=== PATIENT | male | born 1955 | race Caucasian/White ===

== ENCOUNTER 2017-07-25 09:29 | Inpatient (IN) ==
[2017-07-25] MEDS ORDERED: ONDANSETRON 4 MG/2 ML VIAL IV PRN (11:35)
[2017-07-25] MEDS ORDERED: GLUCAGON 1 MG VIAL IM PRN (11:35)
[2017-07-25] MEDS ORDERED: traMADol 50 MG TABLET PO PRN (11:35)
[2017-07-25] MEDS ORDERED: DEXTROSE 50% 25 GM/50 ML VIAL IV PRN (11:35)
[2017-07-25 13:57] LABS: Basophils % 0.3 % (0.0-0.8); Eosinophils # 0.2 10*3/uL (0.0-0.87); Hemoglobin 16.9 GM/DL (14.0-18.0); Immature Granulocytes % 0.6 %; Immature Granulocytes Absolute 0.07 #; Lymphocytes # 2.6 10*3/uL (1.4-4.0); Lymphocytes % 22.5 % (21.2-54.2); Mean Corpuscular Hemoglobin 35 PG (27-34); Mean Corpuscular Volume 88.1 FL (87-102); Mean Platelet Volume 13.3 FL (9.6-12.0); Monocytes # 1.1 10*3/uL (0.11-0.8); Monocytes % 9.8 % (1.7-12.7); Neutrophils # 7.5 10*3/uL (1.4-7.4); Neutrophils % 64.8 % (38.7-73.9); Platelet Count 367 T/CUMM (130-400); Red Blood Count 4.79 MC/CUMM (3.8-5.5); Red Cell Distribution Width 12.9 % (9.3-17.3); White Blood Count 11.6 T/CUMM (4-12)
[2017-07-25] MEDS ORDERED: SODIUM CHLORIDE 0.9% 1,000 ML IV SCH (14:00)
[2017-07-25 14:01] LABS: Hematocrit 42.2 VOL% (42.0-52.0)
[2017-07-25 14:47] LABS: Albumin 3.8 G/DL (3.4-5.0); Bilirubin,Total 1.2 MG/DL (0.2-1.0); Calcium 7.9 MG/DL (8.5-10.1); Magnesium 2.6 MG/DL (1.8-2.4); Osmolality,Calculated 286.6 MOS/KG (273-304); Potassium 4.1 MMOL/L (3.5-5.1)
[2017-07-25 15:42] LABS: Apearance,Urine CLEAR (Clear); Bilirubin,Urine Negative (Negative); Blood, Urine Negative (Negative); Glucose,Urine (UA) >=500 mg/dL (Negative); Ketones,Urine 5 mg/dL (Negative); Nitrite,Urine Negative (Negative); Protein,Urine Negative; RBC,Urine 2 /HPF (0-4); Urine Color Straw (Yellow); Urine Specific Gravity 1.027 (1.001-1.035); Urine Urobilinogen < 2.0 EU/DL (0.2-1.0); WBC,Urine 1 /HPF (0-6)
[2017-07-25] MEDS: TAMSULOSIN 0.4 MG CAPSULE PO SCH (16:03)
[2017-07-25] MEDS: CHLORTHALIDONE 25 MG TABLET PO SCH (16:03)
[2017-07-25] MEDS: SODIUM CHLORIDE 0.9% 1,000 ML IV SCH (16:04)
[2017-07-25] MEDS: INSULIN ASPART PROTAMINE/ASPART 70/30 100 UNIT/ML SUBCUT SCH (16:39)
[2017-07-25] MEDS: DOCUSATE SODIUM 100 MG CAPSULE PO SCH (20:18)
[2017-07-25] MEDS: INSULIN LISPRO 100 UNIT/ML SUBCUT SCH (20:49)
[2017-07-26 06:54] LABS: Risk Ratio 10.28; VLDL CHOLESTEROL 589.4 MG/DL
[2017-07-26 07:13] LABS: Albumin 3.2 G/DL (3.4-5.0); Basophils % 0.5 % (0.0-0.8); Bilirubin,Total 1.1 MG/DL (0.2-1.0); Calcium 7.4 MG/DL (8.5-10.1); Eosinophils # 0.4 10*3/uL (0.0-0.87); Eosinophils % 4.2 % (0.00-10.9); Hematocrit 38.3 VOL% (42.0-52.0); Immature Granulocytes % 0.7 %; Immature Granulocytes Absolute 0.06 #; Lymphocytes # 2.6 10*3/uL (1.4-4.0); Lymphocytes % 30.9 % (21.2-54.2); Mean Corpuscular HGB Conc 36.3 GM/DL (32-36); Mean Corpuscular Hemoglobin 33 PG (27-34); Mean Corpuscular Volume 90.8 FL (87-102); Mean Platelet Volume 10.8 FL (9.6-12.0); Monocytes # 0.8 10*3/uL (0.11-0.8); Monocytes % 9.8 % (1.7-12.7); NRBC # 0.02 10*3/uL; Neutrophils # 4.5 10*3/uL (1.4-7.4); Neutrophils % 53.9 % (38.7-73.9); Osmolality,Calculated 281.1 MOS/KG (273-304); Platelet Count 140 T/CUMM (130-400); Potassium 3.3 MMOL/L (3.5-5.1); Red Blood Count 4.22 MC/CUMM (3.8-5.5); Red Cell Distribution Width 12.3 % (9.3-17.3); Total Protein 5.8 G/DL (6.4-8.3); White Blood Count 8.4 T/CUMM (4-12)
[2017-07-26 07:17] LABS: Hemoglobin 13.9 GM/DL (14.0-18.0)
[2017-07-26] MEDS: SODIUM CHLORIDE 0.9% 1,000 ML IV SCH (07:20)
[2017-07-26] MEDS: INSULIN ASPART PROTAMINE/ASPART 70/30 100 UNIT/ML SUBCUT SCH ×2 (08:09→17:17)
[2017-07-26] MEDS: INSULIN LISPRO 100 UNIT/ML SUBCUT SCH ×4 (08:10→21:28)
[2017-07-26] MEDS ORDERED: BENAZEPRIL 10 MG TABLET PO SCH (09:00)
[2017-07-26] MEDS: POTASSIUM CHLORIDE INJ 10 MEQ in SODIUM CHLORIDE 0.9% 1,000 ML IV SCH ×3 (09:53→23:32)
[2017-07-26] MEDS: POTASSIUM CHLORIDE 20 MEQ TABLET PO SCH (09:54)
[2017-07-26] MEDS: CHLORTHALIDONE 25 MG TABLET PO SCH (09:54)
[2017-07-26] MEDS: IRBESARTAN 150 MG TABLET PO SCH (09:54)
[2017-07-26] MEDS: DOCUSATE SODIUM 100 MG CAPSULE PO SCH ×2 (09:55→21:31)
[2017-07-26] MEDS: PANTOPRAZOLE 40 MG TABLET PO SCH (09:55)
[2017-07-26] MEDS: predniSONE 5 MG TABLET PO SCH (09:55)
[2017-07-26] MEDS: ATORVASTATIN 40 MG TABLET PO SCH (09:55)
[2017-07-26] MEDS: METOPROLOL SUCCINATE XL 100 MG TABLET PO SCH (09:55)
[2017-07-26] MEDS: TAMSULOSIN 0.4 MG CAPSULE PO SCH (09:55)
[2017-07-27] MEDS: ACETAMINOPHEN 325 MG TABLET PO PRN ×2 (04:56→22:20)
[2017-07-27 05:47] LABS: Basophils % 0.4 % (0.0-0.8); Eosinophils # 0.5 10*3/uL (0.0-0.87); Eosinophils % 4.8 % (0.00-10.9); Hematocrit 37.6 VOL% (42.0-52.0); Hemoglobin 13.8 GM/DL (14.0-18.0); Immature Granulocytes % 0.6 %; Immature Granulocytes Absolute 0.06 #; Lymphocytes # 2.6 10*3/uL (1.4-4.0); Mean Corpuscular HGB Conc 36.7 GM/DL (32-36); Mean Corpuscular Hemoglobin 33 PG (27-34); Mean Platelet Volume 10.5 FL (9.6-12.0); Monocytes # 1.1 10*3/uL (0.11-0.8); Monocytes % 10.6 % (1.7-12.7); Neutrophils % 58.6 % (38.7-73.9); Platelet Count 135 T/CUMM (130-400); Red Blood Count 4.18 MC/CUMM (3.8-5.5); Red Cell Distribution Width 12.1 % (9.3-17.3); White Blood Count 10.2 T/CUMM (4-12)
[2017-07-27 06:24] LABS: Calcium 6.6 MG/DL (8.5-10.1); Osmolality,Calculated 272.2 MOS/KG (273-304); Potassium 3.1 MMOL/L (3.5-5.1); Risk Ratio 9.9; VLDL CHOLESTEROL 440.6 MG/DL
[2017-07-27] MEDS: POTASSIUM CHLORIDE INJ 10 MEQ in SODIUM CHLORIDE 0.9% 1,000 ML IV SCH ×3 (06:25→21:23)
[2017-07-27] MEDS: INSULIN ASPART PROTAMINE/ASPART 70/30 100 UNIT/ML SUBCUT SCH ×2 (08:54→17:09)
[2017-07-27] MEDS: INSULIN LISPRO 100 UNIT/ML SUBCUT SCH ×4 (08:57→22:18)
[2017-07-27] MEDS: OMEGA 3 ACID ETHYL ESTERS 1 GM CAPSULE PO SCH ×2 (09:44→22:17)
[2017-07-27] MEDS: METOPROLOL SUCCINATE XL 100 MG TABLET PO SCH (09:45)
[2017-07-27] MEDS: ATORVASTATIN 40 MG TABLET PO SCH (09:45)
[2017-07-27] MEDS: TAMSULOSIN 0.4 MG CAPSULE PO SCH (09:45)
[2017-07-27] MEDS: DOCUSATE SODIUM 100 MG CAPSULE PO SCH ×2 (09:45→22:17)
[2017-07-27] MEDS: POTASSIUM CHLORIDE 20 MEQ TABLET PO SCH (09:45)
[2017-07-27] MEDS: CHLORTHALIDONE 25 MG TABLET PO SCH (09:45)
[2017-07-27] MEDS: predniSONE 5 MG TABLET PO SCH (09:45)
[2017-07-27] MEDS: PANTOPRAZOLE 40 MG TABLET PO SCH (09:45)
[2017-07-27] MEDS: IRBESARTAN 150 MG TABLET PO SCH (09:48)
[2017-07-28] MEDS: POTASSIUM CHLORIDE INJ 10 MEQ in SODIUM CHLORIDE 0.9% 1,000 ML IV SCH ×4 (04:07→22:36)
[2017-07-28 05:40] LABS: Basophils % 0.4 % (0.0-0.8); Eosinophils # 0.5 10*3/uL (0.0-0.87); Eosinophils % 7.5 % (0.00-10.9); Hematocrit 36.3 VOL% (42.0-52.0); Hemoglobin 13.1 GM/DL (14.0-18.0); Immature Granulocytes % 0.9 %; Immature Granulocytes Absolute 0.06 #; Lymphocytes # 2.5 10*3/uL (1.4-4.0); Lymphocytes % 36.6 % (21.2-54.2); Mean Corpuscular HGB Conc 36.1 GM/DL (32-36); Mean Corpuscular Hemoglobin 33 PG (27-34); Mean Corpuscular Volume 90.3 FL (87-102); Monocytes # 0.9 10*3/uL (0.11-0.8); Monocytes % 12.3 % (1.7-12.7); Neutrophils # 2.9 10*3/uL (1.4-7.4); Neutrophils % 42.3 % (38.7-73.9); Platelet Count 122 T/CUMM (130-400); Red Blood Count 4.02 MC/CUMM (3.8-5.5); White Blood Count 6.9 T/CUMM (4-12)
[2017-07-28 06:11] LABS: Calcium 7.4 MG/DL (8.5-10.1); Magnesium 1.9 MG/DL (1.8-2.4); Osmolality,Calculated 276.7 MOS/KG (273-304); Potassium 3.4 MMOL/L (3.5-5.1)
[2017-07-28] MEDS: OMEGA 3 ACID ETHYL ESTERS 1 GM CAPSULE PO SCH ×2 (09:53→20:45)
[2017-07-28] MEDS: IRBESARTAN 150 MG TABLET PO SCH (09:53)
[2017-07-28] MEDS: TAMSULOSIN 0.4 MG CAPSULE PO SCH (09:54)
[2017-07-28] MEDS: DOCUSATE SODIUM 100 MG CAPSULE PO SCH ×2 (09:54→20:46)
[2017-07-28] MEDS: POTASSIUM CHLORIDE 20 MEQ TABLET PO SCH (09:54)
[2017-07-28] MEDS: predniSONE 5 MG TABLET PO SCH (09:54)
[2017-07-28] MEDS: ATORVASTATIN 40 MG TABLET PO SCH (09:54)
[2017-07-28] MEDS: PANTOPRAZOLE 40 MG TABLET PO SCH (09:54)
[2017-07-28] MEDS: CHLORTHALIDONE 25 MG TABLET PO SCH (09:54)
[2017-07-28] MEDS: INSULIN LISPRO 100 UNIT/ML SUBCUT SCH ×4 (09:55→20:47)
[2017-07-28] MEDS: INSULIN ASPART PROTAMINE/ASPART 70/30 100 UNIT/ML SUBCUT SCH ×2 (09:55→17:28)
[2017-07-28] MEDS: METOPROLOL SUCCINATE XL 100 MG TABLET PO SCH (10:01)
[2017-07-28] MEDS ORDERED: INSULIN GLARGINE 100 UNIT/ML SUBCUT SCH (21:00)
[2017-07-29] MEDS: POTASSIUM CHLORIDE INJ 10 MEQ in SODIUM CHLORIDE 0.9% 1,000 ML IV SCH ×3 (05:09→23:17)
[2017-07-29] MEDS: INSULIN LISPRO 100 UNIT/ML SUBCUT SCH ×4 (09:28→21:07)
[2017-07-29] MEDS: INSULIN ASPART PROTAMINE/ASPART 70/30 100 UNIT/ML SUBCUT SCH ×2 (09:28→17:31)
[2017-07-29] MEDS: predniSONE 5 MG TABLET PO SCH (09:30)
[2017-07-29] MEDS: METOPROLOL SUCCINATE XL 100 MG TABLET PO SCH (09:30)
[2017-07-29] MEDS: CHLORTHALIDONE 25 MG TABLET PO SCH (09:30)
[2017-07-29] MEDS: IRBESARTAN 150 MG TABLET PO SCH (09:30)
[2017-07-29] MEDS: OMEGA 3 ACID ETHYL ESTERS 1 GM CAPSULE PO SCH ×2 (09:30→21:05)
[2017-07-29] MEDS: TAMSULOSIN 0.4 MG CAPSULE PO SCH (09:30)
[2017-07-29] MEDS: PANTOPRAZOLE 40 MG TABLET PO SCH (09:31)
[2017-07-29] MEDS: DOCUSATE SODIUM 100 MG CAPSULE PO SCH ×2 (09:31→21:06)
[2017-07-29] MEDS: ATORVASTATIN 40 MG TABLET PO SCH (09:31)
[2017-07-29] MEDS: POTASSIUM CHLORIDE 20 MEQ TABLET PO SCH (09:31)
[2017-07-29] MEDS: INSULIN GLARGINE 100 UNIT/ML SUBCUT SCH (21:07)
[2017-07-30 03:59] LABS: Basophils % 0.5 % (0.0-0.8); Eosinophils # 0.4 10*3/uL (0.0-0.87); Eosinophils % 5.1 % (0.00-10.9); Hematocrit 36.2 VOL% (42.0-52.0); Hemoglobin 12.9 GM/DL (14.0-18.0); Immature Granulocytes % 0.8 %; Immature Granulocytes Absolute 0.06 #; Lymphocytes # 2.8 10*3/uL (1.4-4.0); Lymphocytes % 35.8 % (21.2-54.2); Mean Corpuscular HGB Conc 35.6 GM/DL (32-36); Mean Corpuscular Hemoglobin 32 PG (27-34); Mean Corpuscular Volume 90.5 FL (87-102); Monocytes # 1.1 10*3/uL (0.11-0.8); Monocytes % 14.5 % (1.7-12.7); Neutrophils # 3.4 10*3/uL (1.4-7.4); Neutrophils % 43.3 % (38.7-73.9); Platelet Count 151 T/CUMM (130-400); Red Cell Distribution Width 12.2 % (9.3-17.3); White Blood Count 7.9 T/CUMM (4-12)
[2017-07-30 04:28] LABS: Calcium 7.9 MG/DL (8.5-10.1); Osmolality,Calculated 277.4 MOS/KG (273-304)
[2017-07-30] MEDS: POTASSIUM CHLORIDE INJ 10 MEQ in SODIUM CHLORIDE 0.9% 1,000 ML IV SCH ×3 (05:48→23:06)
[2017-07-30] MEDS: INSULIN LISPRO 100 UNIT/ML SUBCUT SCH ×4 (07:50→21:13)
[2017-07-30] MEDS: INSULIN ASPART PROTAMINE/ASPART 70/30 100 UNIT/ML SUBCUT SCH ×2 (08:06→17:52)
[2017-07-30] MEDS: ATORVASTATIN 40 MG TABLET PO SCH (08:07)
[2017-07-30] MEDS: IRBESARTAN 150 MG TABLET PO SCH (08:08)
[2017-07-30] MEDS: METOPROLOL SUCCINATE XL 100 MG TABLET PO SCH (08:09)
[2017-07-30] MEDS: predniSONE 5 MG TABLET PO SCH (08:09)
[2017-07-30] MEDS: OMEGA 3 ACID ETHYL ESTERS 1 GM CAPSULE PO SCH ×2 (08:09→21:09)
[2017-07-30] MEDS: TAMSULOSIN 0.4 MG CAPSULE PO SCH (08:10)
[2017-07-30] MEDS: DOCUSATE SODIUM 100 MG CAPSULE PO SCH ×2 (08:10→21:09)
[2017-07-30] MEDS: CHLORTHALIDONE 25 MG TABLET PO SCH (08:10)
[2017-07-30] MEDS: PANTOPRAZOLE 40 MG TABLET PO SCH (08:10)
[2017-07-30] MEDS ORDERED: POTASSIUM CHLORIDE 8 MEQ CAPSULE PO SCH ×2 (09:00→21:00)
[2017-07-30] MEDS ORDERED: POTASSIUM CHLORIDE RIDER 20 MEQ in PREMIX 1 EACH IV PRN (10:49)
[2017-07-30] MEDS: POTASSIUM CHLORIDE RIDER 10 MEQ in PREMIX 1 EACH IV PRN ×4 (17:57→21:55)
[2017-07-30] MEDS: INSULIN GLARGINE 100 UNIT/ML SUBCUT SCH (21:13)
[2017-07-31 01:49] LABS: Calcium 7.9 MG/DL (8.5-10.1); Osmolality,Calculated 278.5 MOS/KG (273-304); Potassium 3.3 MMOL/L (3.5-5.1)
[2017-07-31] MEDS: POTASSIUM CHLORIDE INJ 10 MEQ in SODIUM CHLORIDE 0.9% 1,000 ML IV SCH (05:24)
[2017-07-31] MEDS: INSULIN LISPRO 100 UNIT/ML SUBCUT SCH (08:10)
[2017-07-31 08:17] VITALS: BP 144/74
[2017-07-31] MEDS ORDERED: POTASSIUM CHLORIDE 20 MEQ TABLET PO SCH (09:00)
[2017-07-31] MEDS: INSULIN ASPART PROTAMINE/ASPART 70/30 100 UNIT/ML SUBCUT SCH (09:13)
[2017-07-31] MEDS: DOCUSATE SODIUM 100 MG CAPSULE PO SCH (09:15)
[2017-07-31] MEDS: IRBESARTAN 150 MG TABLET PO SCH (09:15)
[2017-07-31] MEDS: TAMSULOSIN 0.4 MG CAPSULE PO SCH (09:15)
[2017-07-31] MEDS: CHLORTHALIDONE 25 MG TABLET PO SCH (09:15)
[2017-07-31] MEDS: ATORVASTATIN 40 MG TABLET PO SCH (09:16)
[2017-07-31] MEDS: OMEGA 3 ACID ETHYL ESTERS 1 GM CAPSULE PO SCH (09:16)
[2017-07-31] MEDS: PANTOPRAZOLE 40 MG TABLET PO SCH (09:17)
[2017-07-31] MEDS: METOPROLOL SUCCINATE XL 100 MG TABLET PO SCH (09:17)
[2017-07-31] MEDS: predniSONE 5 MG TABLET PO SCH (09:17)
== END 2017-07-31 10:45 | disposition home or self-care (01) | DRG 638 ==
LOC: N.2E 12:10
PROVIDERS: ADMIT Family Medicine; ATTEND Family Medicine